=== PATIENT | female | born 1960 | race Caucasian/White ===

== ENCOUNTER 2017-05-09 23:23 | Observation (INO) | payer MEDICAID ==
[~2017-05-09] VITALS: Ht 172.7 cm; Wt 123.9 kg
[2017-05-09 23:29] VITALS: BP 135/78
--- OUTSIDE RECORDS SUMMARY | 2017-05-09 23:42 | External Medical Summary Rpt | CCD ---
Author Author SEAN Address Unknown Phone [email or web address] Purpose Continuity of Care Document - through 2016
--- OUTSIDE RECORDS SUMMARY | 2017-05-09 23:42 | External Medical Summary Rpt | CCD ---
Author Author SEAN Address Unknown Phone Purpose Continuity of Care Document - through 2016
--- OUTSIDE RECORDS SUMMARY | 2017-05-09 23:43 | External Medical Summary Rpt | CCD ---
Author Author Conduent Organization [employer] Address Unknown Phone Unavailable Purpose Continuity of Care Document - through 2016
--- OUTSIDE RECORDS SUMMARY | 2017-05-09 23:43 | External Medical Summary Rpt | CCD ---
Demographics Home Phone Preferred Language Monegasque Marital Status Unknown Roman Catholic Affiliation Unknown Race Unknown Ethnic Group Unknown Author Author , SEAN Organization SEAN Address Unknown Phone [email or web address] Immunization Name Date Rout CVX Reac Dose Comm Prov Is Faci e tion ent ider Refu lity Give sed n TST- 03-0 96 999 Hist STEP No STEP PPD 7-20 ori RHEU RHEU intr 17 al CVH CVH ader Info mal rmat ion - Sour ce Unsp ecif ied Infl 11-0 999 Hist D200 No D200 uenz 7-20 oric 31 31 a 16 al Quad Info rmat W/Pr ion es - Sour ce Unsp ecif ied PPV2 05-1 33 999 Hist D200 No D200 3 3-20 oric 31 31 16 al Info rmat ion - Sour ce Unsp ecif ied Zost 05-1 Intr 121 999 Hist D200 No D200 er 3-20 ader oric 31 31 16 mal al Info rmat ion - Sour ce Unsp ecif ied Infl 01-1 Intr 88 999 Hist D200 No D200 uenz 4-20 amus oric 31 31 a, 16 cula al UF r Info rmat ion - Sour ce Unsp ecif ied
--- OUTSIDE RECORDS SUMMARY | 2017-05-09 23:43 | External Medical Summary Rpt ---
Author Author SEAN Godwin, SEAN [employer] Organization [employer] Address Unknown Phone Unavailable
--- OUTSIDE RECORDS SUMMARY | 2017-05-09 23:43 | External Medical Summary Rpt | CCD ---
Demographics Home Phone Preferred Language S[place]ome[place] Marital Status Unknown Latter-Day Affiliation Unknown Race Unknown Ethnic Group Unknown Author Author , SEAN Organization SEAN Address Unknown Phone [email or web address] Immunization Name Date Rout CVX Reac Dose [...]
[2017-05-09] MEDS ORDERED: PROVENTIL0.09 MG/A1 IH (23:44)
[2017-05-09] MEDS ORDERED: AMLODIPINE10 MG PO (23:45)
[2017-05-09] MEDS ORDERED: ASPIRIN 325MG325 MG PO (23:47)
[2017-05-09] MEDS ORDERED: PULMICORT0.25 MG/2 IH (23:48)
[2017-05-09] MEDS ORDERED: FLONASE 50 MCG16 GM (23:49)
[2017-05-09] MEDS ORDERED: VITAMIN D50000 I1 PO (23:49)
[2017-05-09] MEDS ORDERED: NORCO 325 MG-101 TAB PO (23:50)
[2017-05-09] MEDS ORDERED: GABAPENTIN300 MG PO (23:50)
[2017-05-09] MEDS ORDERED: LORATADINE 10MG10 M1 PO (23:53)
[2017-05-09] MEDS ORDERED: ARAVA20 MG PO (23:53)
[2017-05-09] MEDS ORDERED: LISINOPRIL40 MG PO (23:53)
[2017-05-09] MEDS ORDERED: METOPROLOL SUC100 M1 PO (23:54)
[2017-05-09] MEDS ORDERED: NYSTATIN 1 ML1 M1 (23:55)
[2017-05-09] MEDS ORDERED: SEROQUEL100 MG PO (23:56)
[2017-05-09] MEDS ORDERED: PROTONIX 40MG T40 MG PO (23:56)
[2017-05-09] MEDS ORDERED: TOPAMAX100 MG PO (23:57)
[2017-05-09] MEDS ORDERED: TYLENOL325 MG PO (23:58)
[2017-05-10 00:22] LABS: HEMOGLOBIN 12.6 g/dL (12.2-16.2); LYMPH # 4.2 K/mm3 (0.7-4.5)
[2017-05-10 00:46] LABS: BUN 13 mg/dL (7-18)
[2017-05-10 00:48] LABS: GFR (ESTIMATED) 57 ML/MIN (59-)
--- NOTE | 2017-05-10 00:53 | Emergency Room Report ---
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 PATIENT STATES SOME SOA AND DIZZINESS. 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 N Clinical Suspician of Infection? N Mental Status: 1 - Regular (Normal Baseline) Sepsis Risk:Low Sepsis Risk Have you (or family members/close friends) recently traveled outside the [place]? N If Yes, where/when: Have you had exposure to infectious disease within the past month? N TB? Other? Specify: Source patient, RN notes reviewed, family, EMS, old records Exam Limitations no limitations Comment sudden onset of ant chest pain this pm with sob with no prev episode and no recent cath -see ems run sheet - heaviness feeling Cardiac Chest Pain Chest pain indicative of cardiac Yes Timing/Duration 1-3 hours, gone now Severity/Quality moderate Location central Chest Pain Radiation arm(s) Activities at Onset light activity Nitro Today/Relief 0.4 mg x 1, provided by EMS, mild relief Aspirin Treatment Today 325 mg x 1, provided by EMS Beta stefanie treatment today no beta stefanie taken Cardiac risk factors Elevated lipids, + family history, HTN controlled Prior Workup/Intervention cardiac cath Timing/Duration this evening Severity moderate ALLERGIES Coded Allergies: Mushroom (05/09/17) Uncoded Allergies: INGREDIENT: NO KNOWN - NO KNOWN DRUG ALLERGY (01/09/04) Home Medications Reported Medications ALBUTEROL (Proventil Hfa Inhaler) 1-2 PUFF IH Q4-6H PRN Amlodipine Besylate (Amlodipine) 10 MG PO DAILY ASPIRIN (Aspirin 325MG) 325 MG PO DAILY Budesonide (Pulmicort) 0.25 MG IH BID ERGOCALCIFEROL (VITAMIN D2) (Vitamin D2) 50,000 IUNITS PO DAILY Fluticasone Propionate (Flonase 50 Mcg Nasal [place]) 1 SPRAY NA BID Gabapentin (Gabapentin 300MG) 300 MG PO QHS HYDROCODONE/ACETAMINOPHEN ([place] 10-325 Tablet) 1 TAB PO Q6HP PRN PAIN Leflunomide (Arava) 20 MG PO DAILY Lisinopril (Lisinopril 40MG) 40 MG PO DAILY Loratadine (Loratadine 10MG Tablet) 10 MG PO DAILY METOPROLOL SUCCINATE XL (Metoprolol Succinate) 100 MG PO DAILY Nystatin (Nystatin 1 Ml) 1 ML NA TID Pantoprazole Sodium (Protonix 40MG TAB) 40 MG PO BID Quetiapine Fumarate (Seroquel) 100 MG PO NIGHT ONLY Topiramate (Topamax) 50 MG PO BID Acetaminophen (Tylenol) 650 MG PO Q48HP PRN PAIN History Medical History General CAD? No Angina: Yes RI: No Hypertension? Yes Hyperlipidemia? No CHF? No DVT? Yes PE? No COPD? No Asthma? No Anemia? No GERD? Yes Gastric ulcers? No GI Bleed? No Hernia? No Thyroid Problems? No Hypothyroidism? No CVA? No Seizures? No Diabetes? No Renal Insuffiency? No End Stage Renal Disease? No UTI? No Stones? No BPH? No GB Disease: No Nephritic Syndrome? No Asplenia? No Hepatitis? No Sickle Cell Disease? No Arthritis? Yes Migraines? Yes Cataracts? Yes Glaucoma? No MRSA? No HIV? No TB? No Anxiety? Yes Depression? Yes Cancer? No More? 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 Respiratory denies cough, denies shortness of breath, denies wheezing Cardiovascular see HPI, chest pain, denies palpitations, denies syncope Gastrointestinal denies abdominal pain, denies vomiting Genitourinary denies: dysuria, frequency, hesitancy, hematuria. Musculoskeletal denies back pain, denies joint pain, denies joint swelling, denies neck pain Skin denies rash Psychiatric/Neurological denies headache, denies seizure Physical Exam Vital Signs Vital Signs Date Time Temp Pulse Resp B/P Pulse O2 O2 Flow FiO2 Ox Delivery Rate 05/10 0110 16 05/10 0050 85 18 125/73 96 05/10 0001 97.7 98 20 136/65 95 05/09 2329 98.0 84 18 135/78 93 - WBC >12,000 or <4,000 or 10% bands? 2 or more SIRS Criteria Met? B/P:125/73 MAP:97 Creatinine >2.0? UA output<0.5ml/kg/hr for 2 hrs? Platelet count >100,000? Lactate >2.0mmol/1? INR >1.2 or PTT > than 60 sec? Evidence of Organ Dysfunction? Provider documented clinical suspician of infection? N Sepsis Criteria Count: 0 Sepsis Risk: Low Sepsis Risk General Appearance no apparent distress Eye Exam - bilateral eye PERRL, bilateral eye EOMI Ear, Nose, Throat normal ENT inspection Neck supple Respiratory Status No: respiratory distress. Lung Sounds bilateral: lungs clear. 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 No Results/Orders Laboratory Tests 05/09/17 2350: Sodium 142, Potassium 3.4 L, Chloride 107, Carbon Dioxide 30, BUN 13, Creatinine 1.0, Estimated Creat Clear 117, Estimated GFR (MDRD) 57 L, Glucose 140 H, Calcium 8.7, Total Bilirubin 0.3, AST 18, ALT 28, Alkaline Phosphatase 80, Creatine Kinase 87, CK-MB (CK-2) Rel Index 1.7, CK and CKMB Interp 1.5, Troponin I < 0.02, Total Protein 6.7, Albumin 3.4, Globulin 3.3 H, Albumin/ Globulin Ratio 1.0 L, WBC 10.8, RBC 4.56, Hgb 12.6, Hct 39.0, MCV 85.6, RDW 13.3, Plt Count 230, MPV 8.7, Gran % 49.0, Gran # 5.3, Lymphocytes % 39.0, Monocytes % 4.7, Eosinophils % 6.8, Basophils % 0.6, Lymphocytes # 4.2, Monocytes # 0.5, Eosinophils # 0.7 H, Basophils # 0.1, PUBS MCHC 32.2, MCH 27.5 Current Medication Orders Sig/Miguel Start time Last Medication Dose Route Stop Time Status Admin Lorazepam 0.5 MG ONCE ONE 05/10 115 AC 05/10 IV 05/10 Nitroglycerin 1 IN ONCE ONE 05/10 115 AC 05/10 TP 05/10 Lorazepam 0 .STK-MED ONE 05/10 108 DC .ROUTE Nitroglycerin 0 .STK-MED ONE 05/10 107 DC .ROUTE Nitroglycerin 0.4 MG [id number] PRN 05/09 2345 AC SL Sodium Chloride 10 ML PRN PRN 05/09 2330 AC IV 05/10 2327 Orders Procedure Date/time Status Decision to admit 05/10 110 Active 12 LEAD EKG-BESSON (INITIAL) 05/09 2327 Active ELECTROCARDIOGRAM REQUEST 05/09 2327 Active CHEST-PORTABLE 05/09 2327 Active IV SALINE LOCK 05/09 2327 Active CBC WITH AUTO DIFF 05/09 2327 Complete CARDIAC ENZYMES 05/09 2327 Complete CHEM 12 PROFILE 05/09 2327 Complete CM/EKG CM/negative spotter Rhythm Normal Sinus Rhythm EKG non-spec. ST/Twave chgs XRAY/CT/US XRAY/CT/US XRAY chest XR interpretation by reviewed by me Xray Results normal/NAD WILL Score for N-Stemi/Angina WILL N-STEMI SCORE WILL N-STEMI SCORE Response Value Age of patient Less than 65 yrs 0 Number of risk factors for CAD Presence of less than 3 0 Prior coronary artery stenosis (seen in angiography) Less than 50% 0 ST-Segment deviation on ECG (>1 min) Absent 0 Prior aspirin intake ASA intake in last 7 days 1 Severe anginal chest pain No or 1 episode in 24h 0 Elevated cardiac markers(CK-MB or troponin) Absent 0 Total 1 Risk Stratification 0-2= Low Risk Patients Departure Departure Time of Disposition 0110 Disposition Still a Patient Clinical Impression Primary Impression: Chest pain Qualifiers: Chest pain type: precordial pain Qualified Code: R07.2 - Precordial pain Condition STABLE Additional Instructions discussed with dr louise ED Critical Care Critical Care No at 0116
--- NOTE | 2017-05-10 00:53 | Emergency Room Report ---
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 PATIENT STATES SOME SOA AND DIZZINESS. 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 N Clinical Suspician of Infection? N Mental Status: 1 - Regular (Normal Baseline) Sepsis Risk:Low Sepsis Risk Have you (or family members/close friends) recently traveled outside the [place]? N If Yes, where/when: Have you had exposure to infectious disease within the past month? N TB? Other? Specify: Source patient, RN notes reviewed, family, EMS, old records Exam Limitations no limitations Comment sudden onset of ant chest pain this pm with sob with no prev episode and no recent cath -see ems run sheet - heaviness feeling Cardiac Chest Pain Chest pain indicative of cardiac Yes Timing/Duration 1-3 hours, gone now Severity/Quality moderate Location central Chest Pain Radiation arm(s) Activities at Onset light activity Nitro Today/Relief 0.4 mg x 1, provided by EMS, mild relief Aspirin Treatment Today 325 mg x 1, provided by EMS Beta stefanie treatment today no beta stefanie taken Cardiac risk factors Elevated lipids, + family history, HTN controlled Prior Workup/Intervention cardiac cath Timing/Duration this evening Severity moderate ALLERGIES Coded Allergies: Mushroom (05/09/17) Uncoded Allergies: INGREDIENT: NO KNOWN - NO KNOWN DRUG ALLERGY (01/09/04) Home Medications Reported Medications ALBUTEROL (Proventil Hfa Inhaler) 1-2 PUFF IH Q4-6H PRN Amlodipine Besylate (Amlodipine) 10 MG PO DAILY ASPIRIN (Aspirin 325MG) 325 MG PO DAILY Budesonide (Pulmicort) 0.25 MG IH BID ERGOCALCIFEROL (VITAMIN D2) (Vitamin D2) 50,000 IUNITS PO DAILY Fluticasone Propionate (Flonase 50 Mcg Nasal [place]) 1 SPRAY NA BID Gabapentin (Gabapentin 300MG) 300 MG PO QHS HYDROCODONE/ACETAMINOPHEN ([place] 10-325 Tablet) 1 TAB PO Q6HP PRN PAIN Leflunomide (Arava) 20 MG PO DAILY Lisinopril (Lisinopril 40MG) 40 MG PO DAILY Loratadine (Loratadine 10MG Tablet) 10 MG PO DAILY METOPROLOL SUCCINATE XL (Metoprolol Succinate) 100 MG PO DAILY Nystatin (Nystatin 1 Ml) 1 ML NA TID Pantoprazole Sodium (Protonix 40MG TAB) 40 MG PO BID Quetiapine Fumarate (Seroquel) 100 MG PO NIGHT ONLY Topiramate (Topamax) 50 MG PO BID Acetaminophen (Tylenol) 650 MG PO Q48HP PRN PAIN History Medical History General CAD? No Angina: Yes [place]: No Hypertension? Yes Hyperlipidemia? No CHF? No DVT? Yes PE? No COPD? No Asthma? No Anemia? No GERD? Yes Gastric ulcers? No GI Bleed? No Hernia? No Thyroid Problems? No Hypothyroidism? No CVA? No Seizures? No Diabetes? No Renal Insuffiency? No End Stage Renal Disease? No UTI? No Stones? No BPH? No GB Disease: No Nephritic Syndrome? No Asplenia? No Hepatitis? No Sickle Cell Disease? No Arthritis? Yes Migraines? Yes Cataracts? Yes Glaucoma? No MRSA? No HIV? No TB? No Anxiety? Yes Depression? Yes Cancer? No More? 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 Respiratory denies cough, denies shortness of breath, denies wheezing Cardiovascular see HPI, chest pain, denies palpitations, denies syncope Gastrointestinal denies abdominal pain, denies vomiting Genitourinary denies: dysuria, frequency, hesitancy, hematuria. Musculoskeletal denies back pain, denies joint pain, denies joint swelling, denies neck pain Skin denies rash Psychiatric/Neurological denies headache, denies seizure Physical Exam Vital Signs Vital Signs Date Time Temp Pulse Resp B/P Pulse O2 O2 Flow FiO2 Ox Delivery Rate 05/10 0110 16 05/10 0050 85 18 125/73 96 05/10 0001 97.7 98 20 136/65 95 05/09 2329 98.0 84 18 135/78 93 - WBC >12,000 or <4,000 or 10% bands? 2 or more SIRS Criteria Met? B/P:125/73 MAP:97 Creatinine >2.0? UA output<0.5ml/kg/hr for 2 hrs? Platelet count >100,000? Lactate >2.0mmol/1? INR >1.2 or PTT > than 60 sec? Evidence of Organ Dysfunction? Provider documented clinical suspician of infection? N Sepsis Criteria Count: 0 Sepsis Risk: Low Sepsis Risk General Appearance no apparent distress Eye Exam - bilateral eye PERRL, bilateral eye EOMI Ear, Nose, Throat normal ENT inspection Neck supple Respiratory Status No: respiratory distress. Lung Sounds bilateral: lungs clear. 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 No Results/Orders Laboratory Tests 05/09/17 2350: Sodium 142, Potassium 3.4 L, Chloride 107, Carbon Dioxide 30, BUN 13, Creatinine 1.0, Estimated Creat Clear 117, Estimated GFR (MDRD) 57 L, Glucose 140 H, Calcium 8.7, Total Bilirubin 0.3, AST 18, ALT 28, Alkaline Phosphatase 80, Creatine Kinase 87, CK-MB (CK-2) Rel Index 1.7, CK and CKMB Interp 1.5, Troponin I < 0.02, Total Protein 6.7, Albumin 3.4, Globulin 3.3 H, Albumin/ Globulin Ratio 1.0 L, WBC 10.8, RBC 4.56, Hgb 12.6, Hct 39.0, MCV 85.6, RDW 13.3, Plt Count 230, MPV 8.7, Gran % 49.0, Gran # 5.3, Lymphocytes % 39.0, Monocytes % 4.7, Eosinophils % 6.8, Basophils % 0.6, Lymphocytes # 4.2, Monocytes # 0.5, Eosinophils # 0.7 H, Basophils # 0.1, PUBS MCHC 32.2, MCH 27.5 Current Medication Orders Sig/Miguel Start time Last Medication Dose Route Stop Time Status Admin Lorazepam 0.5 MG ONCE ONE 05/10 115 AC 05/10 IV 05/10 Nitroglycerin 1 IN ONCE ONE 05/10 115 AC 05/10 TP 05/10 Lorazepam 0 .STK-MED ONE 05/10 108 DC .ROUTE Nitroglycerin 0 .STK-MED ONE 05/10 107 DC .ROUTE Nitroglycerin 0.4 MG [id number] PRN 05/09 2345 AC SL Sodium Chloride 10 ML PRN PRN 05/09 2330 AC IV 05/10 2327 Orders Procedure Date/time Status Decision to admit 05/10 110 Active 12 LEAD EKG-BESSON (INITIAL) 05/09 2327 Active ELECTROCARDIOGRAM REQUEST 05/09 2327 Active CHEST-PORTABLE 05/09 2327 Active IV SALINE LOCK 05/09 2327 Active CBC WITH AUTO DIFF 05/09 2327 Complete CARDIAC ENZYMES 05/09 2327 Complete CHEM 12 PROFILE 05/09 2327 Complete CM/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 ST/Twave chgs XRAY/CT/US XRAY/CT/US XRAY chest XR interpretation by reviewed by me Xray Results normal/NAD WILL Score for N-Stemi/Angina WILL N-STEMI SCORE WILL N-STEMI SCORE Response Value Age of patient Less than 65 yrs 0 Number of risk factors for CAD Presence of less than 3 0 Prior coronary artery stenosis (seen in angiography) Less than 50% 0 ST-Segment deviation on ECG (>1 min) Absent 0 Prior aspirin intake ASA intake in last 7 days 1 Severe anginal chest pain No or 1 episode in 24h 0 Elevated cardiac markers(CK-MB or troponin) Absent 0 Total 1 Risk Stratification 0-2= Low Risk Patients Departure Departure Time of Disposition 0110 Disposition Still a Patient Clinical Impression Primary Impression: Chest pain Qualifiers: Chest pain type: precordial pain Qualified Code: R07.2 - Precordial pain Condition STABLE Additional Instructions discussed with dr louise ED Critical Care Critical Care No at 011
--- OUTSIDE RECORDS SUMMARY | 2017-05-10 01:16 | External Medical Summary Rpt | CCD ---
Demographics Home Phone Preferred Language Mosotho Marital Status Unknown Buddhism Affiliation Unknown Race Unknown Ethnic Group Unknown Author Author , SEAN Organization SEAN Address Unknown Phone [email or web address] Immunization Name Date Rout CVX Reac Dose Comm Prov Is Faci e tion ent ider Refu lity Give sed n TST- 03-0 96 999 Hist STEP No STEP PPD 7-20 ori RHEU RHEU intr 17 al CVH CVH ader Info mal rmat ion - Sour ce Unsp ecif ied Infl 11-0 999 Hist D200 No D200 uenz 7-20 ori 31 31 a 16 al Quad Info rmat W/Pr ion es - Sour ce Unsp ecif ied Zost 05-1 Intr 121 999 Hist D200 No D200 er 3-20 ader oric 31 31 16 mal al Info rmat ion - Sour ce Unsp ecif ied PPV2 05-1 33 999 Hist D200 No D200 3 3-20 ori 31 31 16 al Info rmat ion - Sour ce Unsp ecif ied Infl 01-1 Intr 88 999 Hist D200 No D200 uenz 4-20 amus ori 31 31 a, 16 cula al UF r Info rmat ion - Sour ce Unsp ecif ied
--- OUTSIDE RECORDS SUMMARY | 2017-05-10 01:16 | External Medical Summary Rpt | CCD ---
Demographics Home Phone Preferred Language [place] Citizen Marital Status Unknown Gnosticist Affiliation Unknown Race Unknown Ethnic Group Unknown Author Author , SEAN Organization SEAN Address Unknown Phone [email or web address] Immunization Name Date Rout CVX Reac Dose [...]
[2017-05-10 02:44] VITALS: BP 125/73
[2017-05-10 04:00] VITALS: BP 117/65; BP 139/73
--- NOTE | 2017-05-10 05:19 | RADIOLOGY REPORT PS360 ---
CHEST-PORTABLE HISTORY: C/O CHEST PAIN ORDERING PHYSICIAN: Rose Marie Diana MD PATIENT AGE: 57 years COMPARISON: None available FINDINGS: The cardiomediastinal silhouette and pulmonary vascularity are within normal limits. The lungs are clear without infiltrates, suspicious nodules, or pleural effusions. No acute bony abnormalities. IMPRESSION: Negative chest, no acute finding
[2017-05-10 07:18] VITALS: BP 176/95
--- NOTE | 2017-05-10 08:42 | HISTORY AND PHYSICAL REPORT ---
History and Physical ([facility]) Date of admission: 05/10/17 Chief complaint: chest pain History: History of Present Illness: Ms. Nova is a 57yo female with a hx of HTN, HLP, IBS, RA, and chronic back pain. She states yesterday 30 minutes after taking her medication, she began having heart palpitations and left-sided chest pain that radiated into the LEFT shoulder. She states her LEFT arm became numb and tingly and she felt like something hit her in the chest and then felt like a weight was sitting on her chest. She therefore called 911 to transport her to the emergency room. She states she was given nitroglycerin and the pain has resolved, however she still feels like a weight sitting on her chest. Past Medical History: Medical History: CAD? No Angina: Yes ND: No Hypertension? Yes Hyperlipidemia? Yes CHF? No DVT? Yes PE? No COPD? No Asthma? No Anemia? No GERD? Yes Gastric ulcers? No GI Bleed? No Hernia? No Thyroid Problems? No Hypothyroidism? No CVA? No Seizures? No Diabetes? No Renal Insuffiency? No UTI? No Stones? No BPH? No GB Disease: No Nephritic Syndrome? No Asplenia? No Hepatitis? No Sickle Cell Disease? No Arthritis? Yes Migraines? Yes Cataracts? Yes Glaucoma? No MRSA? No HIV? No TB? No Anxiety? Yes Depression? Yes Cancer? No More? No Surgical history: Previous Surgery?Y 1. TUBAL 2. HYSTERECTOMY 3. APPENDECTOMY 4. MASS REMOVED FROM R LUNG 5. CARPAL TUNNEL RELEASE RIGHT 6. MOLES REMOVED 7. HEART CATH Allergies: Coded Allergies: Mushroom (05/09/17) Family History: Family history: Postive for: CAD, HTN, cancer, hyperlipidemia, stroke. Negative for: DM. Social History: Smoking Hx Tobacco: No Smoker: Never Smoker Type: N/A Packs/day: N/A Are you exposed to second hand No Alcohol: Alcohol: No Hx of Drug Use: Drug Use? No Review of Systems: Constitutional No: fatigue, lethargy, malaise, weak. ENT Positive for: sore throat. No: nasal congestion. Cardiovascular Positive for: chest pain, edema, palpitations. Respiratory Positive for: shortness of air. No: productive cough (sputum), wheezing. GI Positive for: nausea, vomitting. No: abdominal pain, diarrhea. (female) No: frequency, hematuria. Neurological Positive for: headache. No: dizziness, syncope, weakness. Musculoskeletal No: extremity pain, joint pain, myalgias. Physical Exam: Vital signs: 1ST Vital Signs Result Date Time Pulse Ox 93 05/09 2329 B/P 135/78 05/09 2329 Temp 98.0 05/09 2329 Pulse 84 05/09 2329 Resp 18 05/09 2329 O2 Delivery ROOM AIR 05/10 024 Exam: General appearance: alert, awake, no acute distress Eyes: EOM's w/normal ROM, PERRLA ENT: mucous membranes moist, nose normal, mild pharyngeal erythema Neck: non-tender, full range of motion, supple Cardiovascular: regular rate & rhythm Respiratory: clear to auscultation ABD: non-distended, normal bowel sounds, no rebound, soft, no tenderness, no guarding Extremities: trace pretibial edema bilaterally Musculoskeletal: equal muscle strength, motor intact, sensation intact Skin: normal color Neuro: normal mood/affect, oriented, speech clear Lab data: Labs: Laboratory Tests 05/10/17 0700: Troponin I 0.03 05/09/17 2350: Sodium 142, Potassium 3.4 L, Chloride 107, Carbon Dioxide 30, BUN 13, Creatinine 1.0, Estimated Creat Clear 117, Estimated GFR (MDRD) 57 L, Glucose 140 H, Calcium 8.7, Total Bilirubin 0.3, AST 18, ALT 28, Alkaline Phosphatase 80, Creatine Kinase 87, CK-MB (CK-2) Rel Index 1.7, CK and CKMB Interp 1.5, Troponin I < 0.02, Total Protein 6.7, Albumin 3.4, Globulin 3.3 H, Albumin/ Globulin Ratio 1.0 L, WBC 10.8, RBC 4.56, Hgb 12.6, Hct 39.0, MCV 85.6, RDW 13.3, Plt Count 230, MPV 8.7, Gran % 49.0, Gran # 5.3, Lymphocytes % 39.0, Monocytes % 4.7, Eosinophils % 6.8, Basophils % 0.6, Lymphocytes # 4.2, Monocytes # 0.5, Eosinophils # 0.7 H, Basophils # 0.1, PUBS MCHC 32.2, MCH 27.5 Radiology results: Results: CXR - Negative chest, no acute finding Diagnosis(es): 1. Chest pain 2. Hypertension 3. Hyperlipidemia 4. Rheumatoid arthritis 5. IBS (irritable bowel syndrome) Plan: Still awaiting last set of cardiac enzymes. Heart monitor was not placed last night so will start one this am. Will continue to monitor. (Melonie Patel) Date of admission: 05/10/17 Past Medical History: Medications: Reported Medications Quetiapine Fumarate (Seroquel) 100 MG PO QHS ALBUTEROL (Proventil Hfa Inhaler) 1-2 PUFF IH Q4-6H PRN Amlodipine Besylate (Amlodipine) 10 MG PO DAILY ASPIRIN (Aspirin 325MG) 325 MG PO DAILY Budesonide (Pulmicort) 0.25 MG IH BID ERGOCALCIFEROL (VITAMIN D2) (Vitamin D2) 50,000 IUNITS PO DAILY Fluticasone Propionate (Flonase 50 Mcg Nasal [place]) 1 SPRAY NA BID Gabapentin (Gabapentin 300MG) 300 MG PO QHS HYDROCODONE/ACETAMINOPHEN ([place] 10-325 Tablet) 1 TAB PO Q6HP PRN PAIN Leflunomide (Arava) 20 MG PO DAILY Lisinopril (Lisinopril 40MG) 40 MG PO DAILY Loratadine (Loratadine 10MG Tablet) 10 MG PO DAILY METOPROLOL SUCCINATE XL (Metoprolol Succinate) 100 MG PO DAILY Nystatin (Nystatin 1 Ml) 1 ML NA TID Pantoprazole Sodium (Protonix 40MG TAB) 40 MG PO BID Topiramate (Topamax) 50 MG PO BID Acetaminophen (Tylenol) 650 MG PO Q48HP PRN PAIN Diagnosis(es): 1. Chest pain 2. Hypertension 3. Hyperlipidemia 4. Rheumatoid arthritis 5. IBS (irritable bowel syndrome) Plan: Pt seen and examined. Concur with above assessment and plan. (Rose Marie Diana MD) at [phone] at [phone]
--- NOTE | 2017-05-10 09:20 | PHARMACY CLINIC NOTE ---
Patient Demographics Patient Demographics Admission date: 05/10/17 Date: 05/10/17 Time: 0920 Allergies Coded Allergies: Mushroom (05/09/17) HEIGHT- FT: 5 IN: 8.00 K.[id number] VTE General Information Labs: Laboratory Tests 05/09 2350 Hematology Hgb (12.2 - 16.2 g/dL) 12.6 Hct (37.0 - 47.0 %) 39.0 Plt Count (142 - 424 K/mm3) 230 Disclaimer The following section includes nursing documentation that has been pulled in for pharmacy review. Patient's VTE score: 3 Patient's VTE Risk: LOW RISK Clinical trial participant? No VTE prophylaxis [id number] VTE prophylaxis ordered? Yes Type of prophylaxis/treatment: SOLA at 0920
[2017-05-10 11:31] VITALS: BP 157/81
[2017-05-10] MEDS ORDERED: NITROSTAT 0.4M0.4 MG SL (13:19)
--- NOTE | 2017-05-10 13:27 | ACUTE CARE PROGRESS NOTE (QUA) ---
Progress Notes Subjective Date 05/10/17 Time 1320 Note SHe has been up and around the room with no further chest pain. Of note she tells me she is on her second round of treatment for H. pyolori per GI. Objective Exam General appearance: alert, no acute distress Cardiovascular: regular rate & rhythm Respiratory: clear to auscultation ABD: non-distended, normal bowel sounds, soft, no tenderness Assessment/Plan Problem List 1. Chest pain 2. Ruled out for myocardial infarction 3. H. pylori infection 4. Hypertension 5. Hyperlipidemia 6. Rheumatoid arthritis 7. IBS (irritable bowel syndrome) Plan: [place] has been ruled out. Her current H. pylori infection could account for her symptoms but explained to patient that she needs to follow up with her PCP to arrange outpt cardiac stress test to complete her workup and she is agreeable. SHe will take home a prescription for NTG SL prn if she has recurring chest pain and is to return to ER for CP not relieved with the NTG. This inpt stay is expected to cross 2 MNs from start of care No at 132
[2017-05-10 14:53] VITALS: BP 157/81
--- NOTE | 2017-05-13 16:38 | DISCHARGE SUMMARY STANDARD ---
Discharge Summary ([facility]CA2) Date of admission: 05/10/17 Date of discharge: 05/10/17 Problem List: 1. Chest pain 2. Ruled out for myocardial infarction 3. H. pylori infection 4. Hypertension 5. Hyperlipidemia 6. Rheumatoid arthritis 7. IBS (irritable bowel syndrome) History of present illness: Ms. Nova is a 57yo female with a hx of HTN, HLP, IBS, RA, and chronic back pain. She stated 30 minutes after taking her medication, she began having heart palpitations and left-sided chest pain that radiated into the LEFT shoulder. She stated her LEFT arm became numb and tingly and she felt like something hit her in the chest and then felt like a weight was sitting on her chest. She therefore called 911 to transport her to the emergency room. She was given nitroglycerin and the pain has resolved, however she still felt like a weight was sitting on her chest. Exam on admission: General appearance: alert, awake, no acute distress Eyes: EOM's w/normal ROM, PERRLA ENT: mucous membranes moist, nose normal, mild pharyngeal erythema Neck: non-tender, full range of motion, supple Cardiovascular: regular rate & rhythm Respiratory: clear to auscultation ABD: non-distended, normal bowel sounds, no rebound, soft, no tenderness, no guarding Extremities: trace pretibial edema bilaterally Musculoskeletal: equal muscle strength, motor intact, sensation intact Skin: normal color Neuro: normal mood/affect, oriented, speech clear Hospital Course: Her CXR showed nothing acute. Her cardiac enzymes were negative. She was able to get up and about the room with no further pain. She was on her 2nd round of treatment for H. Pylori per GI. An [place] was ruled out and it was felt her current H. pylori infection could account for her symptoms. She was still to contact her PCP upon discharge for an outpt cardiac stress test to complete her workup. She was given a prescription for NTG SL prn if she has recurring chest pain and is to return to ER for CP not relieved with the NTG. Discharge medications: Continue taking these medications: ALBUTEROL (Proventil Hfa Inhaler) 90 MCG/PUFF INH 1-2 PUFF INHALATION Q4-6H PRN Amlodipine Besylate (Amlodipine) 10 MG TABLET 10 MILLIGRAM ORAL DAILY ASPIRIN (Aspirin 325MG) 325 MG TABLET 325 MILLIGRAM ORAL DAILY Budesonide (Pulmicort) 0.25 MG/2 ML AMPUL.NEB 0.25 MILLIGRAM INHALATION TWICE A DAY ERGOCALCIFEROL (VITAMIN D2) (Vitamin D2) 50,000 UNIT CAPSULE 50,000 INT. UNITS ORAL DAILY Fluticasone Propionate (Flonase 50 Mcg Nasal [place]) 16 GM SPRAY.SUSP 1 SPRAY Nasal TWICE A DAY Gabapentin (Gabapentin 300MG) 300 MG CAPSULE 300 MILLIGRAM ORAL AT BEDTIME NIGHTLY HYDROCODONE/ACETAMINOPHEN ([place] 10-325 Tablet) 1 EACH TABLET 1 TABLET ORAL EVERY 6 HOURS NEEDED as needed for PAIN Leflunomide (Arava) 20 MG TABLET 20 MILLIGRAM ORAL DAILY Lisinopril (Lisinopril 40MG) 40 MG TABLET 40 MILLIGRAM ORAL DAILY Loratadine (Loratadine 10MG Tablet) 10 MG TABLET 10 MILLIGRAM ORAL DAILY METOPROLOL SUCCINATE XL (Metoprolol Succinate) 100 MG TAB.ER.24H 100 MILLIGRAM ORAL DAILY Nystatin (Nystatin 1 Ml) 1 EACH POWDER.EA. 1 MILLILITER Nasal THREE TIMES A DAY Pantoprazole Sodium (Protonix 40MG TAB) 40 MG TABLET.DR 40 MILLIGRAM ORAL TWICE A DAY Quetiapine Fumarate (Seroquel) 100 MG TABLET 100 MILLIGRAM ORAL AT BEDTIME NIGHTLY Topiramate (Topamax) 100 MG TABLET 50 MILLIGRAM ORAL TWICE A DAY Acetaminophen (Tylenol) 325 MG TABLET 650 MILLIGRAM ORAL EVERY 48 HOURS NEEDED as needed for PAIN Start taking the following new medications: Nitroglycerin (Nitrostat 0.4MG (1/150 Gr) Tabs #25) 0.4 MG TAB.SUBL 0.4 MILLIGRAM SUBLINGUAL EVERY FIVE MINUTES NEEDED as needed for CHEST PAIN Qty = 25 No Refills Disposition: F/U with: IVAN SOLANO Follow up: 3-5 days Activity: Cont Current activity Diet: Continue same diet Discharge to: HOME Agency needed? N at [id number]
== END 2017-05-10 15:01 | disposition home or self-care (01) ==
LOC: ER 23:23 → 2ND 05-10 01:13
PROVIDERS: Emergency Medicine
DX: R07.9 Chest pain, unspecified (principal); I10 Essential (primary) hypertension; K58.9 Irritable bowel syndrome, unspecified; M06.9 Rheumatoid arthritis, unspecified
CPT/HCPCS: G0378; J2405